=== PATIENT | male | born 1990 | race Caucasian/White ===

== ENCOUNTER → 2020-05-17 | Outpatient (CLI) | payer OTHER ==
[~2020-05-17] MED LIST: BREO ELLIPTA 11 EACH INH; CEFTIN250 MG/5 M PO; MEDROL DOSEPAK 24 MG PO; VENTOLIN HFA 66.7 GM INH; VENTOLIN/PROVE0.5 ML INH
== END ==
LOC: ECHO 11:16 → NM 13:00
DX: R07.9 Chest pain, unspecified (principal); R94.39 Abnormal result of other cardiovascular function study
CPT/HCPCS: ECHO; 78452; 93017; 93306; A9502; J2785

== ENCOUNTER → 2020-05-18 | Outpatient (CLI) | payer OTHER | LOC: ECHO 05-17 11:30 → NM 12:51 | DX: R07.9 Chest pain, unspecified (principal); R94.39 Abnormal result of other cardiovascular function study ==

== ENCOUNTER → 2021-01-25 | Outpatient (CLI) | payer OTHER | LOC: HEART 5 16:45 | DX: Z00.00 Encounter for general adult medical examination without abnormal findings (principal); J30.9 Allergic rhinitis, unspecified; R07.9 Chest pain, unspecified; J82.83 Eosinophilic asthma; K58.9 Irritable bowel syndrome, unspecified; D72.10 Eosinophilia, unspecified; E66.9 Obesity, unspecified | CPT/HCPCS: 94060; 95012 ==